=== PATIENT | female | born 1965 | race Two or more races ===

== ENCOUNTER 2023-03-09 13:31 | Inpatient (IN) | payer OTHER ==
[2023-03-09 14:14] VITALS: BMI 26.3
[2023-03-09] MEDS ORDERED: BENZONATATE 200 MG CAPSULE PO PRN (16:03)
[2023-03-09] MEDS ORDERED: MAG HYDROX/AL HYDROX/SIMETH 30 ML UNIT-DOSE CUP PO PRN (16:03)
[2023-03-09] MEDS ORDERED: BENZOCAINE/MENTHOL (CHLORASEPTIC ) LOZENGE MM PRN (16:03)
[2023-03-09] MEDS ORDERED: ONDANSETRON *ODT* 4 MG TABLET SL PRN (16:03)
[2023-03-09] MEDS ORDERED: LORazepam 1 MG TABLET PO PRN (16:03)
[2023-03-09] MEDS ORDERED: IBUPROFEN 600 MG TABLET (FP) PO PRN (16:03)
[2023-03-09] MEDS ORDERED: DICYCLOMINE HCL 10 MG CAPSULE PO PRN (16:03)
[2023-03-09] MEDS ORDERED: IBUPROFEN 400 MG TABLET (FP) PO PRN (16:03)
[2023-03-09] MEDS ORDERED: LORazepam 2 MG TABLET PO ONE (16:03)
[2023-03-09] MEDS ORDERED: guaiFENesin 600 MG TABLET.ER (FP) PO PRN (16:03)
[2023-03-09] MEDS ORDERED: LOPERAMIDE HCL 2 MG CAPSULE PO PRN (16:03)
[2023-03-09] MEDS ORDERED: hydrOXYzine PAMOATE 25 MG CAPSULE (FP) PO PRN (16:03)
[2023-03-09] MEDS ORDERED: BISMUTH SUBSALICYLATE 524 MG/30 ML PO PRN (16:03)
[2023-03-09] MEDS ORDERED: NALOXONE HCL (KLOXXADO) 8 MG SPRAY NS PRN (16:03)
[2023-03-09] MEDS ORDERED: METHOCARBAMOL 500 MG TABLET PO PRN (16:03)
[2023-03-09] MEDS ORDERED: NALOXONE HCL 0.4 MG/ML VIAL IM PRN (16:03)
[2023-03-09] MEDS ORDERED: ACETAMINOPHEN 325 MG TABLET (FP) PO PRN (16:03)
[2023-03-09] MEDS ORDERED: POLYETHYLENE GLYCOL (HEALTHYLAX) 3350 17 GM PACKET PO PRN (16:03)
[2023-03-09] MEDS ORDERED: MAGNESIUM HYDROX 2400MG/30ML ORAL SUSPENSION 30 ML CUP PO PRN (16:03)
[2023-03-09] MEDS ORDERED: HYDROCORTISONE 1% TOPICAL CREAM 30 GM TUBE TP PRN (16:08)
[2023-03-09] MEDS ORDERED: ONDANSETRON *ODT* 4 MG TABLET ONE (16:23)
[2023-03-09] MEDS: LORazepam 2 MG TABLET PO SCH ×2 (17:10→22:18)
[2023-03-09] MEDS: PRENATAL VITAMINS W/ FOLIC ACID TABLET (FP) PO SCH ×3 (18:21→23:15)
[2023-03-09] MEDS ORDERED: FLEET ENEMA NR PRN (21:46)
[2023-03-09] MEDS: MELATONIN 5 MG TABLETS PO SCH (22:17)
[2023-03-09] MEDS: THIAMINE HCL 100 MG TABLET (FP) PO SCH (22:17)
[2023-03-09] MEDS ORDERED: PRENATAL VITAMINS W/ FOLIC ACID TABLET (FP) PO ONE (22:44)
[2023-03-09] MEDS: ONDANSETRON *ODT* 4 MG TABLET SL PRN (23:02)
[2023-03-10] MEDS: LORazepam 2 MG TABLET PO SCH ×4 (05:40→22:06)
[2023-03-10] MEDS: PRENATAL VITAMINS W/ FOLIC ACID TABLET (FP) PO SCH ×2 (10:18→22:05)
[2023-03-10] MEDS: ONDANSETRON *ODT* 4 MG TABLET SL PRN ×2 (10:21→17:23)
[2023-03-10 13:55] LABS: HEMATOCRIT 37.9 % (32.4-45.2); HEMOGLOBIN 13.3 GM/dL (10.7-15.3); MCH 35.5 pg (25.7-33.7); MCHC 35.2 g/dl (32.0-36.0); MEAN PLT VOLUME 9.9 fl (7.5-11.1); PLATELET COUNT 146 10^3/uL (134-434); RBC 3.75 M/mm3 (3.60-5.2); RDW 14.2 % (11.6-15.6); WHITE BLOOD COUNT 3.8 K/mm3 (4.0-10.0)
[2023-03-10 14:05] LABS: POTASSIUM 4.6 mmol/L (3.5-5.1)
[2023-03-10 14:12] LABS: BLOOD UREA NITROGEN 8.2 mg/dL (7-18); CALCIUM 10.9 mg/dL (8.5-10.1)
[2023-03-10 14:13] LABS: ALBUMIN 3.7 g/dl (3.4-5.0)
[2023-03-10 14:15] LABS: CREATININE 0.7 mg/dL (0.55-1.3)
[2023-03-10 14:16] LABS: BILIRUBIN,TOTAL 2.7 mg/dL (0.2-1); TOT PROT 6.9 g/dl (6.4-8.2)
[2023-03-10] MEDS: MELATONIN 5 MG TABLETS PO SCH (22:05)
[2023-03-10] MEDS: THIAMINE HCL 100 MG TABLET (FP) PO SCH (22:05)
[2023-03-10] MEDS ORDERED: PRENATAL VITAMINS W/ FOLIC ACID TABLET (FP) PO ONE (22:44)
[2023-03-11] MEDS ORDERED: LORazepam 1 MG TABLET PO SCH (05:00)
[2023-03-11 10:07] VITALS: BP 102/62; PULSE 81; RESP 18; TEMP 97.3
[2023-03-11] MEDS: ONDANSETRON *ODT* 4 MG TABLET SL PRN (10:33)
[2023-03-11] MEDS: PRENATAL VITAMINS W/ FOLIC ACID TABLET (FP) PO SCH (10:34)
[2023-03-12] MEDS ORDERED: LORazepam 0.5 MG TABLET PO PRN
[2023-03-12] MEDS ORDERED: LORazepam 0.5 MG TABLET PO SCH (05:00)
[2023-03-13] MEDS ORDERED: LORazepam 0.5 MG TABLET PO ONE (05:00)
== END 2023-03-11 11:12 | disposition left against medical advice (07) | DRG 770 ==
LOC: YASAS 13:31 → Y3N 16:27
PROVIDERS: ADMIT Allergy & Immunology; ATTEND Surgery
PROC: HZ2ZZZZ Detoxification Services for Substance Abuse Treatment (ICD-10-PCS; principal; 2023-03-09)
DX: F10.230 Alcohol dependence with withdrawal, uncomplicated (principal); F41.1 Generalized anxiety disorder; I10 Essential (primary) hypertension; K59.00 Constipation, unspecified; Z86.59 Personal history of other mental and behavioral disorders; Z98.84 Bariatric surgery status
CPT/HCPCS: 36415; 80053; 82140; 85027; 86780; 87811; 93005; 93010; C9803-CS; Q0162; U0003; U0005